=== PATIENT | female | born 1950 | race Caucasian/White ===

== ENCOUNTER 2020-07-06 13:02 | Inpatient (IN) | payer OTHER ==
[~2020-07-06] VITALS: Ht 175.2 cm; Wt 92.3 kg
[2020-07-06 13:08] VITALS: BP 125/67
[2020-07-06 13:55] LABS: BASO % 0.6 % (0.0-1.0); EOS # 0.1 10*3/uL (0.0-0.4); EOS % 1.4 % (1.0-4.0); HEMATOCRIT 39.1 % (37.0-47.0); MEAN CELL VOLUME 92.4 fl (81.0-99.0); MEAN CORPUSCULAR HGB 29.3 pg (27.0-31.0); MEAN CORPUSCULAR HGB CONC 31.7 g/dl (33.0-37.0); MEAN PLATELET VOLUME 10.4 fl (9.6-12.3); MONO # 0.5 10*3/uL (0.1-1.0); NEUT # 3.5 10*3/uL (2.3-7.9); NEUT % 68.8 % (47.0-73.0); PLATELET COUNT AUTOMATED 218 10*3/uL (130-400); RED BLOOD COUNT 4.23 10*6/uL (4.10-5.10); RED CELL DISTRI WIDTH 13.2 % (0-14.5); WHITE BLOOD COUNT 5.1 10*3/uL (4.8-10.8)
[2020-07-06 14:12] LABS: ALBUMIN 3.4 gm/dl (3.1-4.5); ALKALINE PHOSPHATASE 87 U/L (45-117); BUN 13 mg/dl (7-24); CHLORIDE 110 mmol/L (98-107); CREATININE 0.88 mg/dL (0.55-1.02); LIPASE 46 U/L (73-393); POTASSIUM 4.4 mmol/L (3.5-5.1); SGOT/AST 11 IU/L (3-35); SGPT/ALT 13 U/L (12-78); SODIUM 142 mmol/L (136-145); TOTAL PROTEIN 7.4 gm/dL (6.4-8.2)
[2020-07-06 14:16] LABS: ACT PARTIAL THROMBO TIME 28.5 SECONDS (20.0-32.1); TROPONIN I < 0.015 ng/ml (<0.045)
--- NOTE | 2020-07-06 14:59 | NUR ---
PT TO RESTROOM AND DID NOT OBTAIN URINE SAMPLE.
--- NOTE | 2020-07-06 15:42 | NUR ---
pt's family updated and pt remains w/o acute distress noted,safety precautions intact and call light within reach,no additional complaints voiced.
--- NOTE | 2020-07-06 16:03 | NUR ---
MAYRA [phone] DAUGHTER TO CALL WITH UPDATE.
[2020-07-06 16:24] LABS: BILIRUBIN Negative (Negative); BLOOD Negative (Negative); CLARITY Cloudy (Clear); COLOR Yellow (Yellow); GLUCOSE Negative (Negative); KETONE Negative (Negative); LEUKO ESTERASE 2+ (Negative); NITRITE Negative (Negative); SPECIFIC GRAVITY 1.025 (1.001-1.030)
[2020-07-06 16:45] VITALS: BP 122/76
[2020-07-06 16:47] LABS: BACTERIA 1+; EPITHELIAL CELLS 0-2
[2020-07-06 18:25] VITALS: BP 121/60
--- NOTE | 2020-07-06 19:08 | NUR ---
PT WITH ECCHYMOTIC AREA TO LFT AC S/P IV ATTEMPT.
--- NOTE | 2020-07-06 20:08 | NUR ---
PT SITTING TO SIDE OF BED WATCHING T.V. W/O ADDITIONAL COMPLAINTS VOICED.
[2020-07-06 20:28] VITALS: BP 126/80
--- NOTE | 2020-07-06 20:28 | NUR ---
Time: 2027 A 69 year old FEMALE admitted to under services of ANAHY DONALD DO. Pt. arrived via bed from ER. Chief complaint: UIT, DIZZINESS, SYNCOPE. GRUPO RANDOLPH
[2020-07-07] VITALS: BP 127/58
[2020-07-07 06:43] LABS: BASO % 0.4 % (0.0-1.0); EOS # 0.1 10*3/uL (0.0-0.4); EOS % 2.2 % (1.0-4.0); HEMATOCRIT 34.2 % (37.0-47.0); LYMPH # 1.3 10*3/uL (1.3-4.4); LYMPH % 29.5 % (27.0-41.0); MEAN CELL VOLUME 91.7 fl (81.0-99.0); MEAN CORPUSCULAR HGB CONC 31.6 g/dl (33.0-37.0); MEAN PLATELET VOLUME 10.8 fl (9.6-12.3); MONO # 0.5 10*3/uL (0.1-1.0); MONO % 10.2 % (3.0-9.0); NEUT # 2.6 10*3/uL (2.3-7.9); NEUT % 57.5 % (47.0-73.0); PLATELET COUNT AUTOMATED 193 10*3/uL (130-400); RED BLOOD COUNT 3.73 10*6/uL (4.10-5.10); RED CELL DISTRI WIDTH 13.2 % (0-14.5); WHITE BLOOD COUNT 4.5 10*3/uL (4.8-10.8)
[2020-07-07 06:55] LABS: ACT PARTIAL THROMBO TIME 28.9 SECONDS (20.0-32.1)
[2020-07-07 07:09] LABS: BUN 14 mg/dl (7-24); CHLORIDE 114 mmol/L (98-107); SODIUM 143 mmol/L (136-145)
[2020-07-07 07:16] LABS: ALKALINE PHOSPHATASE 73 U/L (45-117); CHOLESTEROL 172 mg/dL (<200); CREATININE 0.72 mg/dL (0.55-1.02); FREE T4 0.77 ng/dl (0.76-1.46); HDL CHOLESTEROL 67 mg/dl (40-60); LDL CHOLESTEROL 96 mg/dL (9-159); SGOT/AST 12 IU/L (3-35); SGPT/ALT 12 U/L (12-78); TOTAL PROTEIN 6.2 gm/dL (6.4-8.2); TRIGLYCERIDES 43 mg/dl (<150); VLDL CHOLESTEROL 9 mg/dL (6-40)
[2020-07-07 07:28] LABS: VITAMIN D, 25-HYDROXY 29.1 ng/mL (30-100)
--- NOTE | 2020-07-07 07:30 | NUR ---
PT RESTING IN BED.RESPS EASY AND NON LABORED. NO S/S OF DISTRESS NOTED. VSS. WHTIE BOARD UPDATED.POC DISCUSSED W PT. A/O X3. DENIES DIZZINESS/WEAKNESS. WILL CONTINUE TO MONITOR. CALL LIGHT WITHIN REACH. BED ALARM ON.
[2020-07-07 08:00] VITALS: BP 112/78
--- NOTE | 2020-07-07 08:30 | NUR ---
Column Precaster in to talk to patient. Patient states lives at home with her daughter, Rupa. There are 0 steps in the home. There a 4 outside steps to get into the trailer. Physician: no family physician [facility]acy: [facility] Home health services: none Patient's level of ADLs: MINIMAL ASSIST Patient has working utilities: yes DME: rollator Follow-up physician's appointment after d/c: will be made by the hospitalist nurse director upon discharge Does patient want to access PORTAL?: no Discharge plan discussed with patient. She lives at home with her daughter. She states she is independent in her ADLs and ambulates with a rollator. Discussed short term rehab and home health care services and she declines. CM will continue to follow for any discharge planning needs. When medically stable she will be discharged to home. She states her daughter will provide transportation on discharge. CHERRI ARTHUR
[2020-07-07] MEDS ORDERED: B12 ACTIVE1000 MCG PO (10:19)
[2020-07-07] MEDS ORDERED: CIPRO500 MG PO (10:19)
--- NOTE | 2020-07-07 11:10 | NUR ---
PHYSICAL THERAPY Physical Therapy evaluation completed on 4th floor with full evaluation to follow. Recommend physical therapy per plan of care and home w home health services and family upon discharge. Thank you for this referral. Osvaldo Huerta SPT Sheba Morin PT
--- NOTE | 2020-07-07 11:53 | NUR ---
Discharge instructions reviewed with patient/family. Patient receptive and verbalizes understanding. Follow-up care arranged. Written instructions given to patient/family. RAMYA PARTIDA The Discharge Plan/Instructions have been completed. Hep Lock discontinued. Site asymptomatic. Pressure applied. Sterile dressing applied. RAMYA PARTIDA PT GIVEN ITEMS FROM LOCK BOX
== END 2020-07-07 11:52 | disposition home or self-care (01) | DRG 690 ==
LOC: ED 13:02 → EDHOLD 17:29 → 4E 17:29
PROVIDERS: Emergency Medicine; Podiatrist; ADMIT Internal Medicine; ATTEND Internal Medicine
DX: N39.0 Urinary tract infection, site not specified (principal); K59.00 Constipation, unspecified; E66.3 Overweight; E83.41 Hypermagnesemia; R79.89 Other specified abnormal findings of blood chemistry; Z98.42 Cataract extraction status, left eye; Z98.41 Cataract extraction status, right eye; Z82.49 Family history of ischemic heart disease and other diseases of the circulatory system; Z68.30 Body mass index [BMI] 30.0-30.9, adult; Z79.899 Other long term (current) drug therapy